=== PATIENT | male | born 2005 | race Two or more races ===

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

== ENCOUNTER 2023-09-05 22:58 | Emergency (ER) | payer MEDICAID ==
[~2023-09-05] VITALS: Ht 172.7 cm; Wt 87.9 kg
[~2023-09-05 22:58] MED LIST: AMOX600S PO
[2023-09-05 23:31] VITALS: BP 139/75; PULSE 77; RESP 18; TEMP 98.1; O2SAT 96
[2023-09-06] MEDS ORDERED: IBUP1TAB5 PO (01:08)
[2023-09-06] MEDS: IBUPROFEN 600 MG TAB PO ONE (01:18)
== END 2023-09-06 01:18 | disposition home or self-care (01) ==
LOC: ER 22:58
DX: S16.1XXA Strain of muscle, fascia and tendon at neck level, initial encounter (principal); S09.8XXA Other specified injuries of head, initial encounter; Z79.899 Other long term (current) drug therapy; W18.39XA Other fall on same level, initial encounter; Y93.89 Activity, other specified; Y92.832 Beach as the place of occurrence of the external cause; Y99.8 Other external cause status
CPT/HCPCS: 72040